=== PATIENT | male | born 1940 ===

== ENCOUNTER → 2017-01-21 | Outpatient (REF) | LOC: ZLAB.WCH 18:09 | DX: Z01.89 Encounter for other specified special examinations (principal) ==

== ENCOUNTER → 2017-04-11 | Outpatient (REF) ==
[2017-04-11 15:20] LABS: PSA-TOTAL 0.64 ng/mL (0-4); THYROID STIMULATING HORMONE 3.32 uIU/mL (0.465-4.680)
== END ==
LOC: ZLAB.WCH 14:32
PROVIDERS: Internal Medicine
DX: Z01.89 Encounter for other specified special examinations (principal)
CPT/HCPCS: G0103

== ENCOUNTER → 2017-10-10 | Outpatient (REF) | LOC: ZLAB.WCH 17:55 | DX: Z01.89 Encounter for other specified special examinations (principal) ==

== ENCOUNTER → 2018-03-26 | Outpatient (REF) | LOC: ZLAB.WCH 16:00 | DX: Z01.89 Encounter for other specified special examinations (principal) ==